=== PATIENT | male | born 1950 | race Caucasian/White ===

== ENCOUNTER 2022-08-19 13:32 | Emergency (ER) | payer MEDICARE | END 2022-08-19 14:40 | disposition home or self-care (01) | LOC: NAV ERS 13:32 | DX: H10.9 Unspecified conjunctivitis (principal); E11.9 Type 2 diabetes mellitus without complications | CPT/HCPCS: 87070; 87205; 99283 ==

== ENCOUNTER 2025-04-21 20:00 | Emergency (ER) | payer MEDICARE ==
[~2025-04-21 20:00] MED LIST: Iopamidol 370 76% 100 ML VIAL ONE
[2025-04-21 20:26] LABS: #Basophils 0.1 thou/uL (0.0-0.2); #Eosinophils 0.0 thou/uL (0.0-0.7); #Lymphocytes 0.7 thou/uL (1.20-3.40); #Monocytes 1.0 thou/uL (0.11-0.59); #Neutrophils 14.3 thou/uL (1.40-6.50); %Basophils 0.4 % (0.0-1.0); %Eosinophils 0.1 % (0.0-10.0); %Lymphocytes 4.2 % (21.0-51.0); %Monocytes 6.0 % (0.0-10.0); %Neutrophils 89.4 % (42.0-75.0); Hematocrit 42.4 % (42.0-52.0); Hemoglobin 14.5 g/dL (14.0-18.0); Mean Corpuscular Hemoglobin 28.9 pg (27.0-31.0); Mean Corpuscular Volume 84.6 fl (78.0-98.0); Platelet Count 259 10x3/uL (130-400); Red Blood Cell (RBC) Count 5.01 mill/uL (4.70-6.10); White Blood Cell (WBC) Count 16.0 10x3/uL (4.8-10.8)
[2025-04-21 20:47] LABS: ALT (SGPT) 25 U/L (Less than 45); AST (SGOT) 44 U/L (11-34); Albumin 3.8 g/dL (3.1-4.5); Alkaline Phosphatase 73 U/L (40-110); Anion Gap 22 mmol/L (10-20); BUN (Urea Nitrogen) 18 mg/dL (8.4-25.7); Bilirubin, Total 0.9 mg/dL (0.3-1.2); Calc. Creatinine Clearance 0 mL/min (70-130); Calcium 9.0 mg/dL (7.8-10.44); Carbon Dioxide 17 mmol/L (23-31); Chloride 102 mmol/L (98-107); Globulin 3.7 g/dL (2.4-3.5); Glucose 211 mg/dL (83-110); Potassium 4.1 mmol/L (3.5-5.1); Sodium 137 mmol/L (136-145)
[2025-04-21] MEDS ORDERED: Acetaminophen 500 MG TAB ONE (20:51)
[2025-04-21 21:01] LABS: Troponin I 1.605 ng/mL (< 0.028)
[2025-04-21] MEDS ORDERED: Cefepime 2 GM VIAL ONE (21:31)
[2025-04-21] MEDS ORDERED: Aspirin Chewable 81 MG TAB ONE (21:32)
[2025-04-21] MEDS ORDERED: Enoxaparin 100 MG (1 mL) SYRINGE ONE (22:35)
[2025-04-21 22:41] LABS: INR-International Normal Ratio 1.1; PTT 35.8 sec (22.9-36.1); Prothrombin Time 14.5 sec (12.0-14.7)
== END 2025-04-21 23:35 | disposition short-term general hospital (02) ==
LOC: NAV ERS 20:00
DX: A41.9 Sepsis, unspecified organism (principal); L02.611 Cutaneous abscess of right foot; F05 Delirium due to known physiological condition; I21.4 Non-ST elevation (NSTEMI) myocardial infarction; M86.9 Osteomyelitis, unspecified; E11.9 Type 2 diabetes mellitus without complications
CPT/HCPCS: 70450; 70496; 70498; 71045; 73630; 80053; 82962; 83605; 84484; 85025; 85610; 85730; 87040; 87070; 87205; 93005; 94760; J0692; J1650; J3373; J7030 ×2; 36416; 87077; 87149; 96365; 96367; 96372; Q9967